=== PATIENT | female | born 1995 | race Caucasian/White ===

== ENCOUNTER 2017-10-27 13:26 | Emergency (ER) | payer BC, OTHER ==
[2017-10-27] MEDS ORDERED: KETOROLAC 30 MG/ML INJ ONE (14:04)
[2017-10-27] MEDS ORDERED: ONDANSETRON 4 MG/2 ML VIAL ONE (14:05)
[2017-10-27] MEDS ORDERED: NA CHLORIDE 0.9% 1,000 ML ONE (14:05)
[2017-10-27 14:14] LABS: Absolute Lymphocytes (CBC) 1.1 K/uL (0.7-4.9); Absolute Monocytes 0.9 K/uL (0.1-1.3); Absolute Neutrophil 14.2 K/uL (1.8-8.0); Basophils % 0.3 % (0-1.3); Eosinophils % 5.3 % (0-4.4); Hematocrit 37.1 % (36.0-45.0); Lymphocytes % 6.7 % (15.3-44.8); MCH 25.9 pg (27.0-35.0); MCV 81.8 fL (80-100); MPV 8.4 fL (7.6-11.3); Monocytes % 5.3 % (3.3-12.3); RBC Red Blood Cell Count 4.54 M/uL (3.86-4.86)
[2017-10-27 14:32] LABS: Albumin 4.1 g/dL (3.2-5.5); Bilirubin Direct 0.2 mg/dL (0-0.2); Bilirubin Total 0.7 mg/dL (0.3-1.2); Protein, Total 7.6 g/dL (6.0-8.3)
[2017-10-27 14:40] LABS: Potassium 4.3 mEq/L (3.6-5.0)
--- NOTE | 2017-10-27 15:24 | RAD REPORT ---
EXAM DESCRIPTION: CT - Abdomen Pelvis W Contrast - 10/27/2017 3:08 pm CLINICAL HISTORY: Abdominal pain, shortness of breath COMPARISON: CT examination November 2012 TECHNIQUE: Biphasic, helical CT imaging of the abdomen and pelvis was performed following 100 ml non -ionic IV contrast. No oral contrast given. All CT scans are performed using dose optimization technique as appropriate and may include automated exposure control or mA/KV adjustment according to patient size. FINDINGS: No suspicious findings in the lung bases. No focal liver lesion identifiable. Spleen is upper normal in size without focal abnormality. No panc reatic or peripancreatic process. Cholecystectomy clips are present with no biliary tree dilatation. Symmetric renal function is seen with no hydronephrosis or suspicious renal mass. No pyelonephritis o r acute renal parenchymal process. Partially filled urinary bladder shows no suspicious findings. IUD is well positioned in a normal-sized uterus. No suspicious uterine, ovarian or adnexal finding. No dilated bowel loops or bowel wall thickening. No appendicitis finding. An active GI process is not seen. A few small mesenteric lymph nodes present. No free air, free fluid or inflammatory stranding. No hernia, mass or bulky lymphadenopathy. No adrenal abnormality. No suspicious bony findings. IMPRESSION: No obstruction, free air or surgically emergent finding. No acute GI process seen. Patient has a few small mesenteric lymph nodes.
[2017-10-27 15:29] LABS: Urine Bacteria >50 /HPF (<20); Urine Culture Reflex Order REFLEXED
[2017-10-27 15:30] LABS: Urine Blood 2+ (NEG); Urine Glucose NEGATIVE (NEG); Urine Protein TRACE (NEG); Urine pH 5.5 (5.0-7.0)
[2017-10-27] MEDS ORDERED: CEFTRIAXONE/SWI 1gm 1 GM/10 ML SYR ONE (15:37)
--- NOTE | 2017-10-27 15:38 | EDPHYS ---
Physician Documentation [facility] Name: Cecy Bolanos Age: 21 yrs Sex: Female : 1995 Arrival Date: 10/27/2017 Time: 13:31 Bed 13 Private MD: ED Physician Paul Contreras HPI: 10/27 15:01 This 21 yrs old Female presents to ER via EMS with complaints of Abdominal kb Pain. 15:01 The patient presents with abdominal pain in the right upper quadrant. Onset: The kb symptoms/episode began/occurred today. The symptoms do not radiate. Associated signs and symptoms: none. The symptoms are described as constant. Modifying factors: The symptoms are alleviated by nothing, the symptoms are aggravated by pressure. Severity of pain: At its worst the pain was moderate in the emergency department the pain is unchanged. The patient has not experienced similar symptoms in the past. The patient has not recently seen a physician. 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 - Social history:: Smoking status: Patient/guardian denies using tobacco. ROS: 15:01 Constitutional: Negative for fever, chills, and weight loss, Cardiovascular: Negative kb for chest pain, palpitations, and edema, Respiratory: Negative for shortness of breath, cough, wheezing, and pleuritic chest pain, Back: Negative for injury and pain, : Negative for injury, bleeding, discharge, and swelling, MS/Extremity: Negative for injury and deformity, Skin: Negative for injury, rash, and discoloration, Neuro: Negative for headache, weakness, numbness, tingling, and seizure. 15:01 Abdomen/GI: Positive for abdominal pain, Negative for nausea, vomiting, and diarrhea, constipation, abdominal cramps, abdominal distension, anorexia. Exam: 15:01 Constitutional: This is a well developed, well nourished patient who is awake, alert, kb and in no acute distress. Head/Face: Normocephalic, atraumatic. Chest/axilla: Normal chest wall appearance and motion. Nontender with no deformity. No lesions are appreciated. Cardiovascular: Regular rate and rhythm with a normal S1 and S2. No gallops, murmurs, or rubs. Normal PMI, no JVD. No pulse deficits. Respiratory: Lungs have equal breath sounds bilaterally, clear to auscultation and percussion. No rales, rhonchi or wheezes noted. No increased work of breathing, no retractions or nasal flaring. Back: No spinal tenderness. No costovertebral tenderness. Full range of motion. Skin: Warm, dry with normal turgor. Normal color with no rashes, no lesions, and no evidence of cellulitis. MS/ Extremity: Pulses equal, no cyanosis. Neurovascular intact. Full, normal range of motion. Neuro: Awake and alert, GCS 15, oriented to person, place, time, and situation. Cranial nerves II-XII grossly intact. Motor strength 5/5 in all extremities. Sensory grossly intact. Cerebellar exam normal. Normal gait. 15:01 Abdomen/GI: Inspection: abdomen appears normal, Bowel sounds: normal, in all quadrants, Palpation: soft, in all quadrants, moderate abdominal tenderness, in the right upper quadrant. Vital Signs: 13:38 BP 139 / 79; Pulse 88; Resp 20; Temp 98.3; Pulse Ox 100% on R/A; Weight 74.84 kg (R); ch Height 5 ft. 7 in. (170.18 cm) (R); Pain 10/10; 15:02 BP 129 / 87; Pulse 63; Resp 17; Pulse Ox 100% on R/A; Pain 7/10; ed1 16:01 BP 142 / 87; Pulse 78; Resp 18; Temp 98.3; Pulse Ox 99% on R/A; Pain 0/10; ch 16:34 BP 131 / 86; Pulse 70; Resp 15; Temp 97.9; Pulse Ox 99% on R/A; Pain 0/10; ch 13:38 Body Mass Index 25.84 (74.84 kg, 170.18 cm) ch MDM: 13:32 Patient medically screened. kb 15:01 Data reviewed: vital signs, nurses notes. Data interpreted: Pulse oximetry: on room air kb is 100 %. Interpretation: normal. 15:36 Counseling: I had a detailed discussion with the patient and/or guardian regarding: the kb historical points, exam findings, and any diagnostic results supporting the discharge/admit diagnosis, lab results, radiology results, the need for outpatient follow up, a family practitioner, to return to the emergency department if symptoms worsen or persist or if there are any questions or concerns that arise at home. 10/27 13:49 Order name: Amylase, Serum; Complete Time: 14:41 kb 10/27 13:49 Order name: Basic Metabolic Panel; Complete Time: 14:41 kb 10/27 13:49 Order name: CBC with Diff; Complete Time: 14:19 kb 10/27 13:49 Order name: Hepatic Function; Complete Time: 14:41 kb 10/27 13:49 Order name: Lipase; Complete Time: 14:41 kb 10/27 13:49 Order name: Urine Microscopic Only; Complete Time: 15:31 kb 10/27 13:50 Order name: CT Abd/Pelvis - W/Contrast; Complete Time: 15:31 kb 10/27 14:09 Order name: Urine Dipstick--Ancillary (enter results); Complete Time: 15:31 bd 10/27 14:10 Order name: Urine --Ancillary (enter results); Complete Time: 15:35 bd 10/27 15:30 Order name: Urine Culture EDSC 10/27 13:49 Order name: Urine Test (obtain specimen); Complete Time: 14:10 kb 10/27 13:49 Order name: IV Saline Lock; Complete Time: 13:57 kb 10/27 13:49 Order name: Labs collected and sent; Complete Time: 13:57 kb 10/27 13:49 Order name: Urine Dipstick-Ancillary (obtain specimen); Complete Time: 14:05 kb Administered Medications: 14:10 Drug: NS 0.9% 1000 ml Route: IV; Rate: 1000 ml; Site: left forearm; ed1 15:43 Follow up: IV Status: Completed infusion; IV Intake: 1000ml ed1 14:20 Drug: Zofran 4 mg Route: IVP; Site: left forearm; iw 15:43 Follow up: Response: No adverse reaction ed1 14:20 Drug: TORadol 30 mg Route: IVP; Site: left forearm; iw 15:43 Follow up: Response: No adverse reaction; Pain is decreased ed1 15:43 Drug: Rocephin - (cefTRIAXone) 1 grams Route: IVPB; Infused Over: 30 mins; Site: left ed1 forearm; 16:03 Follow up: IV Status: Completed infusion; IV Intake: 1000ml ch 16:04 Follow up: Response: Adverse reaction, Physician notified; IV Status: Completed ch infusion; IV Intake: 10ml 16:03 Drug: Benadryl 25 mg Route: IVP; Site: left antecubital; ch 16:36 Follow up: Response: No adverse reaction; Marked relief of symptoms Disposition: 17:40 Co-signature as Attending Physician, Paul Contreras MD. rn Disposition: 10/27/17 15:37 Discharged to Home. Impression: Urinary tract infection, site not specified, Upper abdominal pain, unspecified. - Condition is Stable. - Discharge Instructions: Urinary Tract Infection, [id number]. - Prescriptions for Cipro 500 mg Oral Tablet - take 1 tablet by ORAL route every 12 hours for 7 days; 14 tablet. - Medication Reconciliation Form, Thank You Letter, Antibiotic Education, Prescription Opioid Use form. - Follow up: Emergency Department; When: As needed; Reason: Worsening of condition. Follow up: Private Physician; When: 2 - 3 days; Reason: Recheck today's complaints, Continuance of care, Re-evaluation by your physician. Signatures: Dispatcher [employer] EDSC Norma Green, SAGAR ASSISTANT COACH-Lisa Menendez Lexie Rubio, Leena Berry RN, ch, RN RN Paul Contreras MD MD rn Riggs, Erika, PANTOGRAPH I ENGRAVER PANTOGRAPH I ENGRAVER ed1 Corrections: (The following items were deleted from the chart) 15:46 14:36 Labs - recollect needed ordered. ed1 16:37 15:37 10/27/2017 15:37 Discharged to Home. Impression: Urinary tract infection, site ch not specified; Upper abdominal pain, unspecified. Condition is Stable. Forms are Medication Reconciliation Form, Thank You Letter, Antibiotic Education, Prescription Opioid Use. Follow up: Emergency Department; When: As needed; Reason: Worsening of condition. Follow up: Private Physician; When: 2 - 3 days; Reason: Recheck today's complaints, Continuance of care, Re-evaluation by your physician. kb
--- NOTE | 2017-10-27 15:38 | ER ---
Nurse's Notes [facility] Name: Cecy Bolanos Age: 21 yrs Sex: Female : 1995 Arrival Date: 10/27/2017 Time: 13:31 Bed 13 Private MD: Diagnosis: Urinary tract infection, site not specified;Upper abdominal pain, unspecified Presentation: 10/27 13:36 Presenting complaint: EMS states: reports severe upper abdominal pain, shortness of ch breath, unable to take a deep breath. Transition of care: patient was not received from another setting of care. Onset of symptoms was October 27, 2017. Risk Assessment: Do you want to hurt yourself or someone else? Patient reports no desire to harm self or others. Initial Sepsis Screen: Does the patient meet any 2 criteria? No. Patient's initial sepsis screen is negative. Does the patient have a suspected source of infection? No. Patient's initial sepsis screen is negative. Care prior to arrival: None. 13:36 Method Of Arrival: EMS: [facility] 13:40 Acuity: ABBEY 3 ch Triage Assessment: 13:38 General: Appears uncomfortable, Behavior is calm, cooperative. Pain: Complains of pain ch in epigastric area, right upper quadrant and left upper quadrant Pain does not radiate. Pain currently is 10 out of 10 on a pain scale. Quality of pain is described as stabbing, Pain began 2 hours ago. Is continuous. GI: Abdomen is non-distended, Bowel sounds present X 4 quads. Abd is soft X 4 quads Abdomen is tender to palpation in right upper quadrant and left upper quadrant Reports upper abdominal pain, Patient currently denies diarrhea, nausea, vomiting. 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 - Social history:: Smoking status: Patient/guardian denies using tobacco. Screenin:40 Abuse screen: Denies threats or abuse. Denies injuries from another. Nutritional ch screening: No deficits noted. Tuberculosis screening: No symptoms or risk factors identified. Fall Risk None identified. Assessment: 13:40 General: Appears uncomfortable, Behavior is calm, cooperative. Pain: Complains of pain ch in left upper quadrant and right upper quadrant and epigastric area Pain does not radiate. Pain currently is 10 out of 10 on a pain scale. Quality of pain is described as stabbing, Pain began 2 hours ago. Is continuous. Neuro: Level of Consciousness is awake, alert, obeys commands, Oriented to person, place, time, situation. Cardiovascular: Denies chest pain, Heart tones S1 S2 present. Respiratory: Airway is patent Respiratory effort is even, unlabored, Respiratory pattern is regular, symmetrical, Breath sounds are clear bilaterally. GI: Abdomen is non-distended, Bowel sounds present X 4 quads. Abd is soft X 4 quads Abdomen is tender to palpation in right upper quadrant and left upper quadrant Reports upper abdominal pain, Patient currently denies diarrhea, nausea, vomiting. : No signs and/or symptoms were reported regarding the genitourinary system. EENT: No signs and/or symptoms were reported regarding the EENT system. Derm: Skin is intact, is healthy with good turgor, Skin is dry, Skin is normal, Skin temperature is warm. Musculoskeletal: Circulation, motion, and sensation intact. 15:02 Reassessment: Patient appears in no apparent distress at this time. Patient and/or ed1 family updated on plan of care and expected duration. Pain level reassessed. Patient is alert, oriented x 3, equal unlabored respirations, skin warm/dry/pink. Patient states feeling better. Patient states symptoms have improved. 16:00 Reassessment: Patient appears in no apparent distress at this time. pt has three hives ch to trunk of body, approx 4 cm indiameter and "itchy". no other symptoms. states these started about 3 min after the rocephin was given. Terrell notified, pt medicated per orders. 16:15 Reassessment: Patient appears in no apparent distress at this time. Patient and/or ch family updated on plan of care and expected duration. Pain level reassessed. Patient is alert, oriented x 3, equal unlabored respirations, skin warm/dry/pink. Patient states feeling better. Patient states symptoms have improved. 16:34 Reassessment: Patient appears in no apparent distress at this time. Patient and/or ch family updated on plan of care and expected duration. Pain level reassessed. Patient is alert, oriented x 3, equal unlabored respirations, skin warm/dry/pink. pt states she feels all better, just slightly itchy all over. pt educated on benadryl po in 6-8 hours if needed. Vital Signs: 13:38 BP 139 / 79; Pulse 88; Resp 20; Temp 98.3; Pulse Ox 100% on R/A; Weight 74.84 kg (R); ch Height 5 ft. 7 in. (170.18 cm) (R); Pain 10/10; 15:02 BP 129 / 87; Pulse 63; Resp 17; Pulse Ox 100% on R/A; Pain 7/10; ed1 16:01 BP 142 / 87; Pulse 78; Resp 18; Temp 98.3; Pulse Ox 99% on R/A; Pain 0/10; ch 16:34 BP 131 / 86; Pulse 70; Resp 15; Temp 97.9; Pulse Ox 99% on R/A; Pain 0/10; ch 13:38 Body Mass Index 25.84 (74.84 kg, 170.18 cm) ED Course: 13:31 Patient arrived in ED. rg4 13:31 Norm[facility] Green [facility] kb 13:31 Paul Contreras MD is Attending Physician. kb 13:35 Lexie Rubio, LUCAS is Primary Nurse. ch 13:38 Arm band placed on left wrist. 13:40 Triage completed. 13:40 Patient has correct armband on for positive identification. Placed in gown. Bed in low ch position. Call light in reach. Adult w/ patient. Pulse ox on. NIBP on. 13:43 Primary Nurse role handed off by Lexie Rubio, RN ed1 13:43 Bruna Peters LVN is Primary Nurse. ed1 13:58 Initial lab(s) drawn, by me, sent to lab. Inserted saline lock: 22 gauge in left ed1 forearm, using aseptic technique. Blood collected. 14:04 Urine collected: clean catch specimen, cloudy. [facility] 14:05 Urine Microscopic Only Sent. 5 15:[address] via wheelchair. mt 15:07 CT completed. Patient tolerated procedure well. Patient moved back from CT. mt 15:08 CT Abd/Pelvis - W/Contrast In Process Unspecified. EDMS 15:50 Primary Nurse role handed off by Bruna Peters LVN ed1 16:00 Lexie Rubio, RN is Primary Nurse. ch 16:34 No provider procedures requiring assistance completed. IV discontinued, intact, ch bleeding controlled, No redness/swelling at site. Pressure dressing applied. Administered Medications: 14:10 Drug: NS 0.9% 1000 ml Route: IV; Rate: 1000 ml; Site: left forearm; ed1 15:43 Follow up: IV Status: Completed infusion; IV Intake: 1000ml ed1 14:20 Drug: Zofran 4 mg Route: IVP; Site: left forearm; iw 15:43 Follow up: Response: No adverse reaction ed1 14:20 Drug: TORadol 30 mg Route: IVP; Site: left forearm; iw 15:43 Follow up: Response: No adverse reaction; Pain is decreased ed1 15:43 Drug: Rocephin - (cefTRIAXone) 1 grams Route: IVPB; Infused Over: 30 mins; Site: left ed1 forearm; 16:03 Follow up: IV Status: Completed infusion; IV Intake: 1000ml ch 16:04 Follow up: Response: Adverse reaction, Physician notified; IV Status: Completed ch infusion; IV Intake: 10ml 16:03 Drug: Benadryl 25 mg Route: IVP; Site: left antecubital; ch 16:36 Follow up: Response: No adverse reaction; Marked relief of symptoms ch Intake: 15:43 IV: 1000ml; Total: 1000ml. ed1 16:03 IV: 1000ml; Total: 2000ml. ch 16:04 IV: 10ml; Total: 2010ml. Outcome: 15:37 Discharge ordered by . kb 16:34 Discharged to home ambulatory, with family. ch 16:34 Condition: improved 16:34 Discharge instructions given to patient, family, Instructed on discharge instructions, follow up and referral plans. medication usage, Demonstrated understanding of instructions, follow-up care, medications, Prescriptions given X 1. 16:37 Patient left the ED. ch Signatures: Dispatcher [employer] EDME Norma Green, AKILAH-Malissa JUSTINP-Lexie Harvey, RN RN Leena Potter RN RN iw Bruna Peters LVN [employer] ed1 Binta Chang rg4 Alex Resendiz, Shira [facility]
[2017-10-27] MEDS ORDERED: DIPHENHYDRAMINE 50 MG/ML VIAL ONE (15:56)
== END 2017-10-27 16:37 | disposition home or self-care (01) ==
LOC: ER 13:26
DX: N39.0 Urinary tract infection, site not specified (principal); F31.9 Bipolar disorder, unspecified
CPT/HCPCS: 36415; 74177; 80048; 80076; 81003; 81015; 81025; 82150; 83690; 85025; 87077; 87086; 87088; 87186; 99285; J0696; J2405; J7030; Q9967